=== PATIENT | female | born 1995 | race Caucasian/White ===

== ENCOUNTER 2016-11-05 00:43 | Emergency (ER) | payer SELFPAY ==
[~2016-11-05] VITALS: Ht 162.6 cm; Wt 68.0 kg
[2016-11-05 00:44] VITALS: BP 128/74; PULSE 129; RESP 16; TEMP 100.4; O2SAT 98
[2016-11-05] MEDS ORDERED: SODIUM CHLOR 0.9% 1000 ML INJ 1,000 ML IV ONE ×3 (02:00→04:30)
[2016-11-05] MEDS ORDERED: IBUPROFEN 600 MG TAB PO ONE (02:00)
[2016-11-05] MEDS ORDERED: cefTRIAXone INJ 1,000 MG in SODIUM CHLORIDE 0.9% INJ 100 ML IV ONE (02:15)
[2016-11-05 02:17] VITALS: BP 128/74; PULSE 110; RESP 23; O2SAT 98; O2SAT 99
[2016-11-05 02:56] LABS: BASOPHIL % 0.1 % (0.0-2.0); HEMATOCRIT 38.7 % (35.0-46.0); HEMO FLAGS DIFF FINAL; LYMPH % 7.3 % (9.0-44.0); LYMPHOCYTE # 1.1 TH/MM3 (1.0-4.8); MEAN CELL VOLUME 82.2 FL (80.0-100.0); MEAN CORPUSCULAR HGB CONC 34.1 % (32.0-36.0); MONO % 9.6 % (0.0-8.0); PLATELET COUNT 161 TH/MM3 (150-450); RED BLOOD COUNT 4.71 MIL/MM3 (4.00-5.30); WHITE BLOOD COUNT 14.4 TH/MM3 (4.0-11.0)
--- NOTE | 2016-11-05 03:07 | PD ---
HPI Chief Complaint: Flank/Kidney Pain Time Seen by Provider: 02:06 Travel History International Travel<30 days: No Contact w/Intl Traveler<30days: No Traveled to known affect area: No History of Present Illness HPI Patient is a 21-year-old female who presents to emergency room with complaints of kidney infection. Patient reports that for the past 3 days, she has had increased urinary symptoms as well as myalgias and fever and chills. Patient went to the urgent care center yesterday and was diagnosed with a urinary tract infection. Reports that she has been having "uti symptoms." Denies vaginal bleeding/discharge. Denies any cough or congestion. She was told to go to the emergency room for IV antibiotics or get an IM shot of antibiotics with a script for ciprofloxacin. Patient opted to get a shot of IM antibiotics and since taken 2 doses of ciprofloxacin. Patient reports that she has not been feeling any better, reports that these have fevers and chills. Patient here for evaluation. PFSH Past Medical History Medical History: Denies Significant Hx Diminished Hearing: No Tetanus Vaccination: < 5 Years Influenza Vaccination: Yes ?: Not LMP: 09/15/2015 : 0 Para: 0 Past Surgical History Surgical History: No Previous Surgery Social History Alcohol Use: No Tobacco Use: No Substance Use: Yes (mariasha socaially 1xmonth. ) Allergies-Medications (Allergen,Severity, Reaction): Coded Allergies: No Known Allergies (Unverified , 11/05/16) Reported Meds & Prescriptions Reported Meds & Active Scripts Active Reported Cipro (Ciprofloxacin HCl) Unknown Strength Tab Unknown Dose PO BID Review of Systems General / Constitutional: Positive: Fever, Chills Eyes: No: Visual changes HENT: No: Headaches Cardiovascular: No: Chest Pain or Discomfort Respiratory: No: Shortness of Breath Gastrointestinal: No: Abdominal Pain Genitourinary: Positive: Dysuria Musculoskeletal: No: Pain Skin: No Rash Neurologic: No: Weakness Psychiatric: No: Depression Endocrine: No: Polydipsia Hematologic/Lymphatic: No: Easy Bruising Physical Exam Narrative GENERAL: Mild distress SKIN: Focused skin assessment warm/dry. HEAD: Atraumatic. Normocephalic. EYES: Pupils equal and round. No scleral icterus. No injection or drainage. ENT: No nasal bleeding or discharge. Mucous membranes pink and moist. NECK: Trachea midline. No JVD. CARDIOVASCULAR: Tachycardic. No murmur appreciated. RESPIRATORY: No accessory muscle use. Clear to auscultation. Breath sounds equal bilaterally. GASTROINTESTINAL: Abdomen soft, non-tender, nondistended. Hepatic and splenic margins not palpable. MUSCULOSKELETAL: No obvious deformities. No clubbing. No cyanosis. No edema. NEUROLOGICAL: Awake and alert. No obvious cranial nerve deficits. Motor grossly within normal limits. Normal speech. PSYCHIATRIC: Appropriate mood and affect; insight and judgment normal. Data Data Last Documented VS Vital Signs Date Time Temp Pulse Resp B/P Pulse Ox O2 Delivery O2 Flow Rate FiO2 11/05/16 04:37 119 16 102/58 96 Room Air 11/05/16 00:44 100.4 Orders Complete Blood Count With Diff (11/05/16 01:57) Comprehensive Metabolic Panel (11/05/16 01:57) Lactic Acid Sepsis Protocol (11/05/16 01:57) Urinalysis - C+S If Indicated (11/05/16 01:57) Blood Culture (11/05/16 01:57) Ecg Monitoring (11/05/16 01:57) Iv Access Insert/Monitor (11/05/16 01:57) Oximetry (11/05/16 01:57) Ibuprofen (Motrin) (11/05/16 02:00) Sodium Chlor 0.9% 1000 Ml Inj (Ns 1000 M (11/05/16 02:00) Sodium Chlor 0.9% 1000 Ml Inj (Ns 1000 M (11/05/16 02:00) Ceftriaxone Inj (Rocephin Inj) (11/05/16 02:15) Urine Culture (11/05/16 02:55) Acetaminophen (Tylenol) (11/05/16 04:30) Sodium Chlor 0.9% 1000 Ml Inj (Ns 1000 M (11/05/16 04:30) Labs Laboratory Tests Test 11/05/16 11/05/16 02:45 02:55 White Blood Count 14.4 TH/MM3 Red Blood Count 4.71 MIL/MM3 Hemoglobin 13.2 GM/DL Hematocrit 38.7 % Mean Corpuscular Volume 82.2 FL Mean Corpuscular Hemoglobin 28.0 PG Mean Corpuscular Hemoglobin 34.1 % Concent Red Cell Distribution Width 13.0 % Platelet Count 161 TH/MM3 Mean Platelet Volume 9.2 FL Neutrophils (%) (Auto) 83.0 % Lymphocytes (%) (Auto) 7.3 % Monocytes (%) (Auto) 9.6 % Eosinophils (%) (Auto) 0.0 % Basophils (%) (Auto) 0.1 % Neutrophils # (Auto) 12.0 TH/MM3 Lymphocytes # (Auto) 1.1 TH/MM3 Monocytes # (Auto) 1.4 TH/MM3 Eosinophils # (Auto) 0.0 TH/MM3 Basophils # (Auto) 0.0 TH/MM3 CBC Comment DIFF FINAL Differential Comment Sodium Level 136 MEQ/L Potassium Level 3.3 MEQ/L Chloride Level 101 MEQ/L Carbon Dioxide Level 27.5 MEQ/L Anion Gap 8 MEQ/L Blood Urea Nitrogen 5 MG/DL Creatinine 0.90 MG/DL Estimat Glomerular Filtration 80 ML/MIN Rate Random Glucose 115 MG/DL Lactic Acid Level 1.0 mmol/L Calcium Level 8.4 MG/DL Total Bilirubin 1.1 MG/DL Aspartate Amino Transf 17 U/L (AST/SGOT) Alanine Aminotransferase 20 U/L (ALT/SGPT) Alkaline Phosphatase 101 U/L Total Protein 7.5 GM/DL Albumin 3.4 GM/DL Urine Color YELLOW Urine Turbidity HAZY Urine pH 6.0 Urine Specific [place] 1.004 Urine Protein TRACE mg/dL Urine Glucose (UA) NEG mg/dL Urine Ketones 10 mg/dL Urine Occult Blood MOD Urine Nitrite NEG Urine Bilirubin NEG Urine Urobilinogen LESS THAN 2.0 MG/DL Urine Leukocyte Esterase LARGE Urine RBC 7 /hpf Urine WBC 35 /hpf Urine Bacteria OCC /hpf Urine Mucus FEW /lpf Microscopic Urinalysis Comment CATH-CULTURE IND MDM Medical Decision Making Medical Screen Exam Complete: Yes Emergency Medical Condition: Yes Interpretation(s) Vital Signs Date Time Temp Pulse Resp B/P Pulse Ox O2 Delivery O2 Flow Rate FiO2 11/05/16 02:17 110 23 128/74 99 Room Air 11/05/16 02:17 110 23 128/74 98 Room Air 11/05/16 00:44 100.4 129 16 128/74 98 Room Air Differential Diagnosis Pyelonephritis, cystitis, viral syndrome, cervicitis though unlikely Narrative Course Patient is a 21-year-old female who presents to emergency room with complaints of urinary tract symptoms along with fevers and chills. Patient was seen in urgent care center today and received an IM dose of antibiotics and taken 2 doses of ciprofloxacin. Patient reports that she is not feeling any better. Patient presents the emergency room tachycardic with a heart rate of 129 and a temperature of 100.4. Patient does meet SIRS criteria, with source of infection her urine, which meet sepsis criteria. IV fluids, lab work, blood cultures and lactate ordered. IV antibiotics ordered for patient as well Vital Signs Date Time Temp Pulse Resp B/P Pulse Ox O2 Delivery O2 Flow Rate FiO2 11/05/16 04:37 119 16 102/58 96 Room Air 11/05/16 02:17 110 23 128/74 99 Room Air 11/05/16 02:17 110 23 128/74 98 Room Air 11/05/16 00:44 100.4 129 16 128/74 98 Room Air Laboratory Tests Test 11/05/16 11/05/16 02:45 02:55 White Blood Count 14.4 TH/MM3 (4.0-11.0) Red Blood Count 4.71 MIL/MM3 (4.00-5.30) Hemoglobin 13.2 GM/DL (11.6-15.3) Hematocrit 38.7 % (35.0-46.0) Mean Corpuscular Volume 82.2 FL (80.0-100.0) Mean Corpuscular Hemoglobin 28.0 PG (27.0-34.0) Mean Corpuscular Hemoglobin 34.1 % Concent (32.0-36.0) Red Cell Distribution Width 13.0 % (11.6-17.2) Platelet Count 161 TH/MM3 (150-450) Mean Platelet Volume 9.2 FL (7.0-11.0) Neutrophils (%) (Auto) 83.0 % (16.0-70.0) Lymphocytes (%) (Auto) 7.3 % (9.0-44.0) Monocytes (%) (Auto) 9.6 % (0.0-8.0) Eosinophils (%) (Auto) 0.0 % (0.0-4.0) Basophils (%) (Auto) 0.1 % (0.0-2.0) Neutrophils # (Auto) 12.0 TH/MM3 (1.8-7.7) Lymphocytes # (Auto) 1.1 TH/MM3 (1.0-4.8) Monocytes # (Auto) 1.4 TH/MM3 (0-0.9) Eosinophils # (Auto) 0.0 TH/MM3 (0-0.4) Basophils # (Auto) 0.0 TH/MM3 (0-0.2) CBC Comment DIFF FINAL Differential Comment Sodium Level 136 MEQ/L (136-145) Potassium Level 3.3 MEQ/L (3.5-5.1) Chloride Level 101 MEQ/L (98-107) Carbon Dioxide Level 27.5 MEQ/L (21.0-32.0) Anion Gap 8 MEQ/L (5-15) Blood Urea Nitrogen 5 MG/DL (7-18) Creatinine 0.90 MG/DL (0.50-1.00) Estimat Glomerular Filtration 80 ML/MIN (>89) Rate Random Glucose 115 MG/DL (74-106) Lactic Acid Level 1.0 mmol/L (0.4-2.0) Calcium Level 8.4 MG/DL (8.5-10.1) Total Bilirubin 1.1 MG/DL (0.2-1.0) Aspartate Amino Transf 17 U/L (16-38) (AST/SGOT) Alanine Aminotransferase 20 U/L (9-42) (ALT/SGPT) Alkaline Phosphatase 101 U/L (45-117) Total Protein 7.5 GM/DL (6.4-8.2) Albumin 3.4 GM/DL (3.4-5.0) Urine Color YELLOW (YELLW/STRAW) Urine Turbidity HAZY (CLEAR) Urine pH 6.0 (5.0-8.5) Urine Specific [place] 1.004 (1.002-1.035) Urine Protein TRACE mg/dL (NEG-TRACE) Urine Glucose (UA) NEG mg/dL (NEG) Urine Ketones 10 mg/dL (NEG) Urine Occult Blood MOD (NEG) Urine Nitrite NEG (NEG) Urine Bilirubin NEG (NEG) Urine Urobilinogen LESS THAN 2.0 MG/DL (LESS THAN 2.0) Urine Leukocyte Esterase LARGE (NEG) Urine RBC 7 /hpf (0-3) Urine WBC 35 /hpf (0-5) Urine Bacteria OCC /hpf (NONE) Urine Mucus FEW /lpf (OCC) Microscopic Urinalysis Comment CATH-CULTURE IND Vital Signs Date Time Temp Pulse Resp B/P Pulse Ox O2 Delivery O2 Flow Rate FiO2 5/23/17 04:37 119 16 102/58 96 Room Air 11/05/16 02:17 110 23 128/74 99 Room Air 11/05/16 02:17 110 23 128/74 98 Room Air 11/05/16 00:44 100.4 129 16 128/74 98 Room Air Patient re-evaluated, reports that she is feeling better. I gave patient option of admission to the hospital versus trail of outpt treatment for uti. Patient request to be discharged to home, she will return to the emergency room if symptoms worsen or persist . She does not wish to be admitted to the hospital this time. She has only received 1 day of antibiotics and has not truly failed outpatient treatment. VSS at this time. She was given a dose of Rocephin while in the emergency room today, she will continue her ciprofloxacin for 10 days as prescribed. She will follow up with all cultures from today. Patient will follow-up her primary care doctor, signs and symptoms of when to return to the emergency room was reviewed patient in detail. Patient understands that if she feels worse or if her symptoms persist, she should return to the emergency room immediately patient to the hospital. Diagnosis Primary Impression: UTI (urinary tract infection) Qualified Code: N30.01 - Acute cystitis with hematuria Patient Instructions: General Instructions Additional Instructions: Please take all antibiotics as prescribed Please follow-up with all cultures from today Please return to emergency room if symptoms worsen or progress Please follow up from primary care doctor in 24-48 hours Return to the emergency room as needed Disposition: 01 DISCHARGE HOME Condition: Stable Celi Griffiths DO November 05, 2016 03:07
[2016-11-05 03:19] LABS: BACTERIA, URINE OCC /hpf; BLOOD, URINE MOD (NEG); COMMENT (UR) CATH-CULTURE IND; CULTURE IF INDICATED CATH CULTURE IND; GLUCOSE,URINE NEG (NEG); KETONE, URINE 10 mg/dL (NEG); MUCUS URINE FEW /lpf (OCC); NITRITE,URINE NEG (NEG); URINE COLOR YELLOW (YELLW/STRAW)
[2016-11-05 03:22] LABS: ANION GAP 8 MEQ/L (5-15); AST (GOT) 17 U/L (16-38); BICARBONATE 27.5 MEQ/L (21.0-32.0); BLOOD UREA NITROGEN 5 MG/DL (7-18); CHLORIDE 101 MEQ/L (98-107); GLOMERULAR FILTRATION RATE 80 ML/MIN (>89); POTASSIUM 3.3 MEQ/L (3.5-5.1); SODIUM (NA) 136 MEQ/L (136-145)
[2016-11-05 03:25] LABS: ALKALINE PHOSPHATASE 101 U/L (45-117); ALT (GPT) 20 U/L (9-42); TOTAL BILIRUBIN ADULT 1.1 MG/DL (0.2-1.0)
[2016-11-05] MEDS ORDERED: ACETAMINOPHEN 325 MG TAB PO ONE (04:30)
[2016-11-05 04:37] VITALS: BP 102/58; PULSE 119; RESP 16; O2SAT 96
[2016-11-05] MEDS ORDERED: CIPR250T52 PO (04:39)
== END 2016-11-05 06:12 | disposition home or self-care (01) ==
LOC: NEPE 00:43
DX: N30.01 Acute cystitis with hematuria (principal); M79.1 Myalgia; R50.9 Fever, unspecified; R00.0 Tachycardia, unspecified
CPT/HCPCS: 80053; 81001; 83605; 85025; 87040; 87086; 96361; 96365; 99284; J0696; J7030